=== PATIENT | male | born 1960 | race Caucasian/White ===

== ENCOUNTER → 2018-08-30 11:17 | Outpatient (CLI) | payer OTHER, SELFPAY ==
--- NOTE | 2018-08-30 11:26 | NVE_ITS ---
Venous Exam Indications: 729.5 Pain in limb. IMPRESSIONS 1. There is no evidence of significant Reflux. 2. No evidence of deep or superficial vein thrombosis involving the right lower extremity Right lower extremity venous duplex evaluation. Doppler flow study including spectral analysis, color and dickens scale imaging. Location: Vascular laboratory. Patient status: Outpatient. CRITICAL FINDINGS - Reported to: JENNIFER HARKINS - Read back and verified. - 08/30/18 - 1150 - NONE Tables: Venous flow and imaging: + +-------+ + Location Overall Flow properties + +-------+ + Right common femoral Patent Normal phasicity; spontaneous; normal augmentation; compressible + +-------+ + Right saphenofemoral junction Patent Compressible + +-------+ + Right profunda femoral Patent Compressible + +-------+ + Right femoral Patent Normal phasicity; spontaneous; normal augmentation; compressible + +-------+ + Right greater saphenous Patent Normal phasicity; spontaneous; normal augmentation; compressible + +-------+ + Right popliteal Patent Normal phasicity; spontaneous; normal augmentation; compressible + +-------+ + Right posterior tibial Patent Compressible + +-------+ + Right peroneal Patent Compressible + +-------+ + Right gastrocnemius Patent Compressible + +-------+ + Right soleal Patent Compressible + +-------+ + (Report amended ) Electronically signed by: Rafael Jimenez [id number]
--- NOTE | 2018-08-30 11:47 | XR_ITS ---
XR knee RT 3V HISTORY: ITS.REASON: RT KNEE PAIN ORDERING PHYSICIAN: Dave Whittington MD PATIENT AGE: 58 years COMPARISON: None FINDINGS There are moderate osteoarthritic changes of the medial compartment and patellofemoral joint of the right knee with mild osteoarthritis of the lateral compartment knee. No fracture or dislocation. There is an irregular oval 4.5 x 2.4 cm coarsely calcified lesion superior to the patella and may represent a synovial osteochondroma. Additional better circumscribed calcific densities are present along the posterior proximal tibia and may also be due to synovial osteochondromas or atypical osteophytes. Hypertrophic changes are present at the tibial spines and the intercondylar region of the femur distally. IMPRESSION: Moderate osteoarthritis. Scattered periarticular calcifications which may be due to synovial osteochondromatosis. Would recommend follow-up to confirm stability
== END ==
PROVIDERS: PCP Internal Medicine Adolescent Medicine; Visit Provider Internal Medicine Adolescent Medicine
DX: M79.89 Other specified soft tissue disorders (principal); M25.561 Pain in right knee
CPT/HCPCS: 73562; 93971

== ENCOUNTER → 2018-10-19 09:35 | Outpatient (CLI) | payer OTHER, SELFPAY ==
--- NOTE | 2018-10-19 09:44 | XR_ITS ---
XR knee RT 4V HISTORY: ITS.REASON: knee pain ORDERING PHYSICIAN: Marcela Leblanc MD PATIENT AGE: 58 years COMPARISON: 08/30/2018. FINDINGS: The degenerative changes described on the prior report are stable. There is a stable mottled calcific density in the suprapatellar bursa. The posterior corticated ossifications at the femoral/tibial joint area are unchanged. There is no acute fracture. Impression: Stable changes of severe osteoarthritis. 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
== END ==
LOC: RAD 09:40
PROVIDERS: PCP Internal Medicine Adolescent Medicine; Visit Provider Orthopaedic Surgery
DX: M25.561 Pain in right knee (principal)
CPT/HCPCS: 73564

== ENCOUNTER 2024-01-27 11:53 | Outpatient (CLI) | payer BC, SELFPAY ==
--- NOTE | 2024-01-27 11:58 | XR_ITS ---
PROCEDURE INFORMATION: Exam: XR Right Hand Exam date and time: 01/27/2024 11:59 AM Age: 63 years old Clinical indication: Numbness; Hand; Right; Additional info: Right hand numbness TECHNIQUE: Imaging protocol: Radiologic exam of the right hand. Views: 3 or more views. Frontal Oblique Lateral COMPARISON: No relevant prior studies available. FINDINGS: Bones/joints: Diffusely decreased bone density. Moderate to severe generalized bony degenerative changes. Moderate to severe degenerative changes identified within the 1st carpal metacarpal articulation. Moderate to severe lateral wrist sclerosis with osteophytes, joint space narrowing. Most severe degenerative changes between the distal radius and ulna, proximal carpal row and within the lateral wrist, 1st carpometacarpal articulation. Severe degenerative changes in the 1st digit interphalangeal joint. No visualized evidence for acute bony fracture or dislocation. Bony structures appear otherwise unremarkable. Soft tissues: Mild soft tissue edema. The soft tissues appear otherwise unremarkable. Notes: If there is further concern, recommend follow-up radiographs or MRI for complete assessment. IMPRESSION: 1. Moderate to severe extensive degenerative changes. 2. No visualized evidence for acute bony fracture or dislocation.
--- NOTE | 2024-01-27 12:27 | XR_ITS ---
PROCEDURE INFORMATION: Exam: XR Cervical Spine Exam date and time: 01/27/2024 12:38 PM Age: 63 years old Clinical indication: Neck pain; Additional info: Pain and numbness TECHNIQUE: Imaging protocol: Radiologic exam of the cervical spine. Views: 2 or 3 views. AP Lateral Odontoid 3 views COMPARISON: CR XR CERVICAL SPINE 5V 01/27/2024 12:38 PM FINDINGS: Tubes, catheters and devices: None. Bones/joints: Diffusely severely decreased bone density. Limited sensitivity to detect acute abnormalities. Moderate to severe bony degenerative changes involving the anterior cervical cranial junction. Moderate to severe generalized bony degenerative changes. Dextroscoliosis of the cervical spine is demonstrated. The alignment of the vertebra appear otherwise unremarkable without dislocation. Most severe degenerative disc disease between C4-C6 levels. Most severe facet degenerative changes in the cervicothoracic junction region. Possible bony central canal and foraminal narrowing. Consider MRI imaging. Bony structures appear otherwise unremarkable. No visualized evidence for acute bony fracture or dislocation. Soft tissues: Unremarkable. Lungs: Visualized aspects of the chest appear grossly unremarkable. Notes: If there is further concern or neurological abnormalities on clinical exam, MRI or CT of the cervical spine may be performed for complete assessment. IMPRESSION: 1. No acute bony abnormality identified. 2. Chronic appearing degenerative changes, as described above. 3. Severely decreased bone density. Limited sensitivity.
--- NOTE | 2024-01-27 12:27 | XR_ITS ---
PROCEDURE INFORMATION: Exam: XR Left Wrist Exam date and time: 01/27/2024 12:38 PM Age: 63 years old Clinical indication: Pain; Wrist; Bilateral; Additional info: Pain and numbness TECHNIQUE: Imaging protocol: Radiologic exam of the left wrist. Views: 3 or more views. Frontal Oblique Lateral COMPARISON: CR XR HAND LT MIN 3V 01/27/2024 12:38 PM FINDINGS: Bones/joints: Severe degenerative changes identified within the 1st carpal metacarpal articulation. Lateral wrist severe sclerosis with osteophytes, joint space narrowing. Lateral subluxation of the 1st metacarpal is demonstrated. [id number] degenerative changes within the articulation of the distal radius and proximal lateral carpal bones. Limited evaluation with flexion positioning of the digits. Bony overlap is demonstrated. Mild to moderate generalized bony degenerative changes. Soft tissues: The soft tissue appear unremarkable. Notes: If there is further concern, followup radiographs or MRI of the wrist may be performed for complete assessment. IMPRESSION: 1. Severe degenerative changes within the 1st carpal metacarpal articulation, as described above. 2. Mild to moderate generalized degenerative changes.
--- NOTE | 2024-01-27 12:27 | XR_ITS ---
PROCEDURE INFORMATION: Exam: XR Right Wrist Exam date and time: 01/27/2024 12:38 PM Age: 63 years old Clinical indication: Pain; Wrist; Bilateral; Additional info: Pain and numbness TECHNIQUE: Imaging protocol: Radiologic exam of the right wrist. Views: 3 or more views. Frontal Oblique Lateral COMPARISON: CR XR WRIST RT MIN 3V 01/27/2024 12:38 PM FINDINGS: Bones/joints: Diffusely decreased bone density. Moderate to severe generalized bony degenerative changes. Most severe degenerative changes identified between the distal radius and ulna articulation with the proximal carpal row. Severe sclerosis, joint space narrowing, osteophytes and subchondral cystic changes. Moderate to severe degenerative changes in the lateral right wrist. Moderate to severe degenerative changes identified within the 1st carpal metacarpal articulation. Moderate to severe lateral wrist sclerosis with osteophytes, joint space narrowing. Limited evaluation with flexion positioning of the digits. There is bony overlap. No visualized evidence for acute bony fracture or dislocation. Bony structures appear otherwise unremarkable. Moderate to severe degenerative changes in the 1st digit interphalangeal joint with large osteophytes, joint space narrowing, sclerosis and subchondral cystic change. Soft tissues: The soft tissue appear unremarkable. Notes: If there is further concern, followup radiographs or MRI of the wrist may be performed for complete assessment. IMPRESSION: 1. Moderate to severe degenerative changes. 2. No acute bony abnormality identified.
--- NOTE | 2024-01-27 12:27 | XR_ITS ---
PROCEDURE INFORMATION: Exam: XR Left Shoulder Exam date and time: 01/27/2024 12:38 PM Age: 63 years old Clinical indication: Pain; Shoulder; Left TECHNIQUE: Imaging protocol: Radiologic exam of the left shoulder. Views: 2 or more views. AP INT/ EXT ROTATION, SCAPULAR Y COMPARISON: CR XR SHOULDER LT MIN 2V 01/27/2024 12:38 PM FINDINGS: Bones/joints: Diffusely decreased bone density. Mild to moderate generalized bony degenerative changes. Bony structures appear otherwise unremarkable. Soft tissues: Linear radiopaque density identified anterior to the acromion. This density measures up to 16 mm, 4 mm on the frontal view. This density measures up to 15 mm length on the transscapular Y-view. No adjacent soft tissue edema. Recommend clinical correlation for possible soft tissue radiopaque foreign body. Notes: If there is further concern, follow-up radiographs or MRI of the shoulder may be performed for complete assessment. IMPRESSION: 1. Chronic bony changes. 2. No acute bony abnormality identified. 3. Linear radiopaque density within the soft tissues anterior to the acromion measuring up to 16 mm. Recommend clinical correlation for possible etiology of radiopaque foreign body.
--- NOTE | 2024-01-27 12:27 | XR_ITS ---
PROCEDURE INFORMATION: Exam: XR Left Hand Exam date and time: 01/27/2024 12:38 PM Age: 63 years old Clinical indication: Pain; Hand; Bilateral; Additional info: Pain and numbness TECHNIQUE: Imaging protocol: Radiologic exam of the left hand. Views: 3 or more views. Frontal Oblique Lateral COMPARISON: CR XR HAND LT MIN 3V 01/27/2024 12:38 PM FINDINGS: Bones/joints: Severe degenerative changes identified within the 1st carpal metacarpal articulation. Lateral wrist severe sclerosis with osteophytes, joint space narrowing. Lateral subluxation of the 1st metacarpal is demonstrated. Mild to moderate generalized bony degenerative changes. Narrowing, sclerosis and osteophytes between the distal radius and proximal lateral carpal bones. Moderate to severe degenerative changes within the 1st, 2nd and 3rd metacarpal phalangeal articulations. No visualized evidence for acute bony fracture or dislocation. Bony structures appear otherwise unremarkable. Soft tissues: The soft tissue appear unremarkable. Notes: If there is further concern, recommend follow-up radiographs or MRI for complete assessment. IMPRESSION: 1. Severe degenerative changes within the 1st carpal metacarpal articulation, as described above. 2. Moderate to severe degenerative changes within the 1st, 2nd and 3rd metacarpal phalangeal articulations. 3. [id number] generalized degenerative changes.
== END 2024-01-27 23:59 | disposition home or self-care (01) ==
PROVIDERS: PCP Internal Medicine Adolescent Medicine; Visit Provider Physician Assistant Surgical
DX: M79.641 Pain in right hand (principal); R20.2 Paresthesia of skin; R20.0 Anesthesia of skin; M25.512 Pain in left shoulder
CPT/HCPCS: 72040; 73030; 73110; 73130

== ENCOUNTER 2024-02-08 16:56 | Outpatient (CLI) | payer BC, SELFPAY ==
--- NOTE | 2024-02-08 16:58 | MR_ITS ---
PROCEDURE INFORMATION: Exam: MR Cervical Spine Without Contrast Exam date and time: 02/08/2024 5:08 PM Age: 63 years old Clinical indication: Patient HX: Neck pain with bilateral hand numbness x few years TECHNIQUE: Imaging protocol: Magnetic resonance imaging of the cervical spine without contrast. COMPARISON: CR XR CERVICAL SPINE 5V 01/27/2024 12:38 PM FINDINGS: Bones/joints: Vertebral body height, alignment and overall marrow signal is within normal limits with the exception of a high signal lesion in the C7 vertebral body likely representing hemangioma. Cervical spondylosis is noted with disc ridging, facet arthropathy and uncovertebral spurring. Spinal cord: Normal signal. No cord compression. C2-C3: No significant disc bulge or herniation. No severe spinal canal stenosis. No significant neural foraminal narrowing. C3-C4: At C3-C4 there is minor disc ridging, small central and left paracentral protrusions but no significant canal narrowing. There is moderate to severe neural foraminal narrowing worse on the left. C4-C5: At C4-C5 there is disc ridging with facet arthropathy and uncovertebral spurring but no cord impingement and moderate to severe neural foraminal narrowing, worse on the right. C5-C6: At C5-C6 there is disc ridging with facet arthropathy and uncovertebral spurring. There is no cord impingement. There is severe right-sided and moderate severe left-sided neural foraminal narrowing. C6-C7: At C6-C7 there is disc ridging but no impingement upon the cord. There is moderate right-sided and severe left-sided neural foraminal narrowing. C7-T1: At C7-T1 there is no significant canal narrowing and moderate to severe left neural foraminal narrowing. Soft tissues: Unremarkable. Vasculature: Expected flow voids in the vertebral arteries. IMPRESSION: Cervical spondylosis as described.
== END 2024-02-08 23:59 | disposition home or self-care (01) ==
LOC: RAD 16:57
PROVIDERS: PCP Internal Medicine Adolescent Medicine; Visit Provider Nurse Practitioner Family
DX: M51.9 Unspecified thoracic, thoracolumbar and lumbosacral intervertebral disc disorder (principal)
CPT/HCPCS: 72141